=== PATIENT | male | born 1975 | race Two or more races ===

== ENCOUNTER → 2021-08-13 | Outpatient (CLI) | payer BC ==
[2021-08-13 07:53] LABS: Basophils # (auto) 0 10 ^3/uL (0-0.2); Basophils % (auto) 0.4 % (0.0-2.0); Eosinophils # (auto) 0.1 10 ^3/uL (0-0.8); Eosinophils % (auto) 2.5 % (0.0-7.0); Hematocrit 44.3 % (41.0-53.0); Hemoglobin 15.4 g/dL (13.5-17.5); Lymphocytes # (auto) 2.1 10 ^3/uL (0.4-5.4); Mean Corpuscular Hemoglobin 30.6 pg (28.0-32.0); Mean Corpuscular Hgb Conc. 34.7 g/dL (32.0-36.0); Monocytes # (auto) 0.4 10 ^3/uL (0-1.3); Monocytes % (auto) 7.4 % (0.0-12.0); Neutrophils # (auto) 2.8 10 ^3/uL (1.6-8.6); Neutrophils % (auto) 51.7 % (37.0-80.0); Nucleated Red Blood Cells % 0.2 %; Red Blood Cells 5.04 10^6/uL (4.5-5.90); White Blood Cell 5.4 10^3/uL (4.4-10.8)
[2021-08-13 07:55] LABS: Albumin 4.2 g/dL (3.4-5.0); Potassium 4.5 mmol/L (3.5-5.1)
[2021-08-13 07:58] LABS: BUN/Creatinine Ratio 19.6; Bilirubin, Total 1.1 mg/dL (0.2-1.0); Total Protein 7.8 g/dL (6.4-8.2)
== END | disposition home or self-care (01) ==
LOC: LAB 06:40
PROVIDERS: ATTEND Internal Medicine
DX: K21.9 Gastro-esophageal reflux disease without esophagitis (principal); R73.9 Hyperglycemia, unspecified; E78.5 Hyperlipidemia, unspecified
CPT/HCPCS: 36415; 80053; 80061; 83036; 84443; 85025

== ENCOUNTER → 2022-08-20 | Outpatient (CLI) | payer BC | END | disposition home or self-care (01) | LOC: LAB 10:00 | PROVIDERS: ATTEND Family Medicine | DX: C44.229 Squamous cell carcinoma of skin of left ear and external auricular canal (principal) | CPT/HCPCS: 88302 ==

== ENCOUNTER 2023-07-01 09:56 | Day surgery (SDC) | payer BC ==
[2023-06-30 08:34] LABS: Basophils # (auto) 0 10 ^3/uL (0-0.2); Basophils % (auto) 0.3 % (0.0-2.0); Eosinophils # (auto) 0.1 10 ^3/uL (0-0.8); Eosinophils % (auto) 1.3 % (0.0-7.0); Hematocrit 46.5 % (41.0-53.0); Hemoglobin 16.1 g/dL (13.5-17.5); Lymphocytes # (auto) 2.4 10 ^3/uL (0.4-5.4); Lymphocytes % (auto) 22.8 % (10.0-50.0); Mean Corpuscular Hemoglobin 30.5 pg (28.0-32.0); Mean Corpuscular Hgb Conc. 34.6 g/dL (32.0-36.0); Monocytes # (auto) 0.6 10 ^3/uL (0-1.3); Monocytes % (auto) 6.1 % (0.0-12.0); Neutrophils # (auto) 7.4 10 ^3/uL (1.6-8.6); Neutrophils % (auto) 69.5 % (37.0-80.0); Nucleated Red Blood Cells % 0.2 %; Red Blood Cells 5.28 10^6/uL (4.5-5.90); Red Cell Distribution Width 12.9 % (11.8-14.3); White Blood Cell 10.7 10^3/uL (4.4-10.8)
[2023-06-30 08:44] LABS: INR 1.03 (0.9-1.15); Partial Thromboplastin Time 28.9 SEC (24.5-34.5); Prothrombin Time 10.8 sec (9.3-11.8)
[2023-06-30 09:23] LABS: Alanine Aminotransferase 45 U/L (7-40); Albumin 4.9 g/dL (3.2-4.8); Alkaline Phosphatase 75 U/L (46-116); Anion Gap 5 (5-15); Aspartate Aminotransferase 23 U/L (13-40); BUN/Creatinine Ratio 15.8 (10.0-20.0); Bilirubin, Total 0.8 mg/dL (0.2-1.0); Blood Urea Nitrogen 15 mg/dL (9-23); Calcium 9.9 mg/dL (8.5-10.1); Carbon Dioxide 29 mmol/L (20-30); Chloride 104 mmol/L (98-107); Glucose 93 mg/dL (74-106); Potassium 4.6 mmol/L (3.5-5.1); Sodium 138 mmol/L (136-145); Total Protein 7.5 g/dL (5.7-8.2)
[~2023-07-01] VITALS: Ht 172.7 cm; Wt 79.4 kg
[~2023-07-01 09:56] MED LIST: OMEP20TA PO
[2023-07-01] MEDS ORDERED: LIDOCAINE VISCOUS 2% 15ML UD ONE (10:22)
[2023-07-01] MEDS ORDERED: SODIUM CHLORIDE LOCK 10 ML ONE (10:22)
[2023-07-01 13:49] VITALS: PULSE 72; RESP 20; O2SAT 97
[2023-07-01] MEDS: fentaNYL CITRATE 100 MCG/2 ML VL ONE ×2 (13:52→13:56)
[2023-07-01] MEDS: diphenhdrAMINE HCL 50 MG/1 ML VL ONE ×2 (13:52→13:53)
[2023-07-01] MEDS: MIDAZOLAM HCL 5 MG/ML-1ML VIAL ONE ×2 (13:52→13:56)
[2023-07-01 14:01] VITALS: O2SAT 97
[2023-07-01 14:05] VITALS: TEMP 98.4
[2023-07-01 14:35] VITALS: BP 114/82; PULSE 64; RESP 17; O2SAT 96
== END 2023-07-01 14:51 | disposition home or self-care (01) ==
LOC: GI 09:56
PROVIDERS: ATTEND Internal Medicine Gastroenterology
DX: K21.9 Gastro-esophageal reflux disease without esophagitis (principal); K29.50 Unspecified chronic gastritis without bleeding; K31.89 Other diseases of stomach and duodenum; K31.7 Polyp of stomach and duodenum; K44.9 Diaphragmatic hernia without obstruction or gangrene; Z85.820 Personal history of malignant melanoma of skin; Z98.890 Other specified postprocedural states
CPT/HCPCS: 36415; 43239; 80053; 85025; 85610; 85730; 88305; 88312; 88342; J1200; J2250; J3010; J7030

== ENCOUNTER → 2023-07-11 | Outpatient (CLI) | payer BC ==
[2023-07-11 07:44] LABS: Alanine Aminotransferase 43 U/L (7-40); Alkaline Phosphatase 74 U/L (46-116); Anion Gap 4 (5-15); BUN/Creatinine Ratio 12.5 (10.0-20.0); Blood Urea Nitrogen 12 mg/dL (9-23); Calcium 9.9 mg/dL (8.5-10.1); Carbon Dioxide 29 mmol/L (20-30); Chloride 105 mmol/L (98-107); Glucose 96 mg/dL (74-106); LDL Cholesterol 146 mg/dL (< 100); Potassium 4.9 mmol/L (3.5-5.1); Sodium 138 mmol/L (136-145); Triglycerides 91 mg/dL (< 150)
[2023-07-11 07:45] LABS: Albumin 4.7 g/dL (3.2-4.8); Aspartate Aminotransferase 20 U/L (13-40)
[2023-07-11 07:46] LABS: Bilirubin, Total 0.8 mg/dL (0.2-1.0); Cholesterol 204 mg/dL (< 200); HDL Cholesterol 48 mg/dL (40-59); Total Protein 7.6 g/dL (5.7-8.2)
== END | disposition home or self-care (01) ==
LOC: LAB 07:01
PROVIDERS: ATTEND Internal Medicine
DX: R73.01 Impaired fasting glucose (principal); E78.5 Hyperlipidemia, unspecified; E66.3 Overweight
CPT/HCPCS: 36415; 80053; 80061; 83036

== ENCOUNTER → 2024-02-28 | Outpatient (CLI) | payer BC ==
[2024-02-28 09:19] LABS: Alanine Aminotransferase 68 U/L (7-40); Albumin 4.9 g/dL (3.2-4.8); Alkaline Phosphatase 86 U/L (46-116); Anion Gap 4 (5-15); Aspartate Aminotransferase 28 U/L (13-40); Blood Urea Nitrogen 16 mg/dL (9-23); Calcium 10.2 mg/dL (8.7-10.4); Carbon Dioxide 28 mmol/L (20-30); Chloride 104 mmol/L (98-107); Glucose 94 mg/dL (74-106); Potassium 4.3 mmol/L (3.5-5.1); Sodium 136 mmol/L (136-145)
[2024-02-28 09:20] LABS: Bilirubin, Total 1.3 mg/dL (0.2-1.0); Total Protein 7.9 g/dL (5.7-8.2)
[2024-02-28 13:03] LABS: Triglycerides 152 mg/dL (< 150)
[2024-02-28 13:04] LABS: LDL Cholesterol 147 mg/dL (< 100)
[2024-02-28 13:05] LABS: Cholesterol 213 mg/dL (< 200); HDL Cholesterol 43 mg/dL (40-59)
== END | disposition home or self-care (01) ==
LOC: LAB 06:14
PROVIDERS: ATTEND Internal Medicine
DX: K21.9 Gastro-esophageal reflux disease without esophagitis (principal); E78.00 Pure hypercholesterolemia, unspecified; Z12.5 Encounter for screening for malignant neoplasm of prostate; Z80.42 Family history of malignant neoplasm of prostate
CPT/HCPCS: 36415; 80053; 80061; 82274; 84153

== ENCOUNTER → 2024-03-16 | Outpatient (CLI) | payer BC ==
[2024-03-16 09:06] LABS: Basophils # (auto) 0 10 ^3/uL (0-0.2); Basophils % (auto) 0.5 % (0.0-2.0); Eosinophils # (auto) 0.1 10 ^3/uL (0-0.8); Eosinophils % (auto) 1.9 % (0.0-7.0); Hematocrit 46.3 % (41.0-53.0); Hemoglobin 16.6 g/dL (13.5-17.5); Lymphocytes # (auto) 2.4 10 ^3/uL (0.4-5.4); Lymphocytes % (auto) 39.8 % (10.0-50.0); Mean Corpuscular Hemoglobin 31.4 pg (28.0-32.0); Mean Corpuscular Hgb Conc. 35.8 g/dL (32.0-36.0); Mean Corpuscular Volume 87.5 fL (80.0-100.0); Monocytes # (auto) 0.4 10 ^3/uL (0-1.3); Monocytes % (auto) 6.8 % (0.0-12.0); Neutrophils # (auto) 3.1 10 ^3/uL (1.6-8.6); Nucleated Red Blood Cells % 0.1 %; Platelet Count (auto) 222 10^3/uL (140-450); Red Cell Distribution Width 13.4 % (11.8-14.3)
[2024-03-16 09:49] LABS: Alanine Aminotransferase 63 U/L (7-40); Albumin 4.9 g/dL (3.2-4.8); Alkaline Phosphatase 84 U/L (46-116); Amylase 43 U/L (30-118); Anion Gap 6 (5-15); Aspartate Aminotransferase 26 U/L (13-40); BUN/Creatinine Ratio 12.6 (10.0-20.0); Bilirubin, Total 1.5 mg/dL (0.2-1.0); Blood Urea Nitrogen 12 mg/dL (9-23); Calcium 10.3 mg/dL (8.7-10.4); Carbon Dioxide 28 mmol/L (20-31); Chloride 104 mmol/L (98-107); Glucose 91 mg/dL (74-106); Potassium 4.2 mmol/L (3.5-5.1); Sodium 138 mmol/L (136-145); Total Protein 7.8 g/dL (5.7-8.2)
[2024-03-16 10:25] LABS: Prostate Specific Antigen 0.53 ng/mL (0.0-4.0)
[2024-03-16 10:29] LABS: Carcinoembryonic Antigen < 0.50 ng/mL (<=5.0)
[2024-03-16 11:39] LABS: Lipase 44 U/L (12-53)
== END | disposition home or self-care (01) ==
LOC: LAB 08:37
PROVIDERS: ATTEND Internal Medicine Gastroenterology
DX: K62.5 Hemorrhage of anus and rectum (principal); R10.9 Unspecified abdominal pain
CPT/HCPCS: 36415; 80053; 82150; 82378; 83690; 84153; 85025; 86803; 87340

== ENCOUNTER → 2024-05-03 | Outpatient (CLI) | payer BC ==
[2024-05-03 14:01] LABS: Chloride 104 mmol/L (98-107); Sodium 140 mmol/L (136-145)
[2024-05-03 14:02] LABS: Anion Gap 8 (5-15); Carbon Dioxide 28 mmol/L (20-31)
[2024-05-03 14:07] LABS: BUN/Creatinine Ratio 13.6 (10.0-20.0); Blood Urea Nitrogen 15 mg/dL (9-23); Glucose 122 mg/dL (74-106)
[2024-05-03 14:41] LABS: Urine Bacteria None Seen /hpf (None Seen)
[2024-05-03 14:45] LABS: Urine Blood TRACE /uL (Negative); Urine Clarity Clear (Clear); Urine Color Colorless (Yellow); Urine Protein, UAD Negative (Negative); Urine Specific Gravity 1.005 (1.001-1.035); Urine Urobilinogen Normal (Negative); Urine WBC 1 /hpf (0 - 3); Urine pH 5.5 (5.0-9.0)
== END | disposition home or self-care (01) ==
LOC: LAB 13:04
PROVIDERS: ATTEND Internal Medicine
DX: N40.0 Benign prostatic hyperplasia without lower urinary tract symptoms (principal); N20.0 Calculus of kidney
CPT/HCPCS: 36415; 80048; 81001; 84153

== ENCOUNTER 2024-08-02 09:15 | Day surgery (SDC) | payer BC ==
[2024-07-31 11:00] LABS: Urine Bacteria None Seen /hpf (None Seen)
[2024-07-31 11:11] LABS: Basophils # (auto) 0 10 ^3/uL (0-0.2); Basophils % (auto) 0.6 % (0.0-2.0); Eosinophils # (auto) 0.1 10 ^3/uL (0-0.8); Eosinophils % (auto) 1.7 % (0.0-7.0); Hematocrit 46.6 % (41.0-53.0); Hemoglobin 15.8 g/dL (13.5-17.5); Lymphocytes # (auto) 2.6 10 ^3/uL (0.4-5.4); Lymphocytes % (auto) 44.8 % (10.0-50.0); Mean Corpuscular Hgb Conc. 33.9 g/dL (32.0-36.0); Mean Corpuscular Volume 88.4 fL (80.0-100.0); Monocytes # (auto) 0.5 10 ^3/uL (0-1.3); Monocytes % (auto) 8.2 % (0.0-12.0); Neutrophils # (auto) 2.6 10 ^3/uL (1.6-8.6); Neutrophils % (auto) 44.7 % (37.0-80.0); Nucleated Red Blood Cells % 0.1 %; Platelet Count (auto) 222 10^3/uL (140-450); Red Blood Cells 5.27 10^6/uL (4.5-5.90); Red Cell Distribution Width 13.4 % (11.8-14.3); White Blood Cell 5.9 10^3/uL (4.4-10.8)
[2024-07-31 11:13] LABS: Urine Blood TRACE /uL (Negative); Urine Clarity Clear (Clear); Urine Color Colorless (Yellow); Urine Protein, UAD Negative (Negative); Urine Specific Gravity 1.006 (1.001-1.035); Urine Squamous Epithelial Cell None Seen /hpf (<5); Urine Urobilinogen Normal (Negative); Urine WBC < 1 /HPF (0-3)
[2024-07-31 11:33] LABS: INR 1.01 (0.9-1.15); Partial Thromboplastin Time 27.1 SEC (24.5-34.5); Prothrombin Time 10.7 sec (9.3-11.8)
[2024-07-31 11:56] LABS: Alkaline Phosphatase 80 U/L (46-116); Anion Gap 5 (5-15); Aspartate Aminotransferase 19 U/L (13-40); BUN/Creatinine Ratio 9.6 (10.0-20.0); Chloride 103 mmol/L (98-107); Potassium 4.9 mmol/L (3.5-5.1); Sodium 139 mmol/L (136-145)
[2024-07-31 11:57] LABS: Bilirubin, Total 0.9 mg/dL (0.2-1.0); Total Protein 7.5 g/dL (5.7-8.2)
[2024-07-31 11:58] LABS: Alanine Aminotransferase 50 U/L (7-40); Albumin 5.1 g/dL (3.2-4.8); Blood Urea Nitrogen 9 mg/dL (9-23); Calcium 10.6 mg/dL (8.7-10.4); Carbon Dioxide 31 mmol/L (20-31); Glucose 72 mg/dL (74-106)
[~2024-08-02] VITALS: Ht 172.7 cm; Wt 81.6 kg
[~2024-08-02 09:15] MED LIST changes: +FAMO-68 PO
[2024-08-02] MEDS ORDERED: KETAMINE 50mg/ML 1ml syringe ONE (09:42)
[2024-08-02] MEDS ORDERED: ONDANSETRON HCL 4 MG/2 ML VIAL ONE (09:42)
[2024-08-02] MEDS ORDERED: GLYCOPYRROLATE 0.2 MG/ML 1ML VIAL ONE (09:42)
[2024-08-02] MEDS ORDERED: DexAMETHasone SOD PHOS 10MG/1ML VIAL INJ ONE (09:42)
[2024-08-02] MEDS ORDERED: KETOROLAC TROMETH 30 MG/ML 1ML VIAL ONE (09:42)
[2024-08-02] MEDS ORDERED: PROPOFOL 10 MG/ML 20 ML IV ONE (09:42)
[2024-08-02] MEDS ORDERED: LIDOCAINE 2% (LOCAL ANESTH.) PF 5ml SDV ONE (09:42)
[2024-08-02] MEDS ORDERED: LIDOCAINE HCL 2% TOP JELLY 5ML TOP ONE (09:44)
[2024-08-02] MEDS: ceFAZolin 2 GM/D5W100ml 100 ML IV ONE (10:15)
[2024-08-02] MEDS ORDERED: IOHEXOL 180 MG/ML 20ML VIAL IJ ONE (10:21)
[2024-08-02 11:27] VITALS: PULSE 114; RESP 9; TEMP 97.8; O2SAT 100
[2024-08-02 11:40] VITALS: PULSE 73; RESP 20; O2SAT 98
--- NOTE | 2024-08-02 11:40 | DVHDS2 ---
New Physician D'charge PN Admitting Diagnosis Admitting Diagnosis Right renal calculus Right ureteral calculus Discharge Diagnosis Same Operations or Procedures Extracorporeal shockwave lithotripsy of right mid ureteral calculus Extracorporeal shockwave lithotripsy of right renal stone Reason(s) For Hospitalization Surgery Treatment Plan Discharge Condition of Discharge Good Disposition Home Discharge Instructions Diet: Regular Activity: Light activity Activity comment: Activity as tolerated Medications: Given Follow Up Care Follow Up/Referral: Follow up in 2-3 weeks with renal ultrasound Discharge Statement: "Patient was advised to return to the ER or call 911 if any headaches, dizziness, shortness of breath, chest pain, abdominal pain, bleeding, fevers, or worsening of medical condition. Patient was counseled about treatment plan, medications, possible side effects, patientverbalized understanding. All questions were answered to the best of my ability. This discharge took greater then 30 minutes in planning, reviewing documentation, counseling the patient, and discussing with other team members." KIZZY GEIGER MD Aug 02, 2024 11:40
[2024-08-02] MEDS ORDERED: FLUMAZENIL 0.1 MG/ML INJ 10ML MDV IV PRN (11:45)
[2024-08-02] MEDS ORDERED: hydrALAZINE HCL 20 MG/ML VL IV PRN (11:45)
[2024-08-02] MEDS ORDERED: HYDROmorphone HCL 2 MG/ML VL/or syr IV PRN (11:45)
[2024-08-02] MEDS ORDERED: ONDANSETRON HCL 4 MG/2 ML VIAL IV PRN (11:45)
[2024-08-02] MEDS ORDERED: NALOXONE HCL 0.4 MG/ML VIAL IV PRN (11:45)
[2024-08-02] MEDS ORDERED: fentaNYL CITRATE 100 MCG/2 ML VL IV PRN (11:45)
[2024-08-02] MEDS ORDERED: ePHEDrine SULFATE 50 MG/ML AMP IV PRN (11:45)
[2024-08-02] MEDS: oxyCODONE HCL 5MG TAB PO PRN (12:02)
[2024-08-02 12:12] VITALS: BP 131/90; PULSE 70; RESP 19; O2SAT 97
== END 2024-08-02 12:32 | disposition home or self-care (01) ==
LOC: SUR 09:15
PROVIDERS: ATTEND Urology
DX: N20.2 Calculus of kidney with calculus of ureter (principal); K21.9 Gastro-esophageal reflux disease without esophagitis; Z98.890 Other specified postprocedural states
CPT/HCPCS: 36415; 50590; 80053; 81001; 85025; 85610; 85730; 87086; J1100; J1885; J2003; J2405; J2704; J7030; Q9965

== ENCOUNTER → 2024-08-16 | Outpatient (CLI) | payer BC ==
[2024-08-16 13:17] LABS: Urine Bacteria None Seen /hpf (None Seen)
[2024-08-16 13:24] LABS: Basophils # (auto) 0 10 ^3/uL (0-0.2); Basophils % (auto) 0.5 % (0.0-2.0); Eosinophils # (auto) 0.1 10 ^3/uL (0-0.8); Eosinophils % (auto) 0.9 % (0.0-7.0); Hematocrit 46.6 % (41.0-53.0); Lymphocytes # (auto) 2.3 10 ^3/uL (0.4-5.4); Lymphocytes % (auto) 27.1 % (10.0-50.0); Mean Corpuscular Hemoglobin 30.6 pg (28.0-32.0); Mean Corpuscular Hgb Conc. 34.3 g/dL (32.0-36.0); Mean Corpuscular Volume 89.2 fL (80.0-100.0); Monocytes # (auto) 0.6 10 ^3/uL (0-1.3); Monocytes % (auto) 7.2 % (0.0-12.0); Neutrophils # (auto) 5.5 10 ^3/uL (1.6-8.6); Neutrophils % (auto) 64.3 % (37.0-80.0); Nucleated Red Blood Cells % 0.9 %; Platelet Count (auto) 268 10^3/uL (140-450); Red Blood Cells 5.22 10^6/uL (4.5-5.90); White Blood Cell 8.6 10^3/uL (4.4-10.8)
[2024-08-16 13:56] LABS: Alanine Aminotransferase 38 U/L (7-40); Alkaline Phosphatase 95 U/L (46-116); Anion Gap 4 (5-15); Aspartate Aminotransferase 20 U/L (13-40); BUN/Creatinine Ratio 11.4 (10.0-20.0); Blood Urea Nitrogen 13 mg/dL (9-23); Calcium 10.3 mg/dL (8.7-10.4); Carbon Dioxide 29 mmol/L (20-31); Chloride 104 mmol/L (98-107); Cholesterol 184 mg/dL (< 200); Glucose 88 mg/dL (74-106); Potassium 4.3 mmol/L (3.5-5.1); Sodium 137 mmol/L (136-145); Total Protein 8.1 g/dL (5.7-8.2); Triglycerides 79 mg/dL (< 150)
[2024-08-16 14:03] LABS: Albumin 5.2 g/dL (3.2-4.8); Bilirubin, Total 1.7 mg/dL (0.2-1.0); HDL Cholesterol 37 mg/dL (40-59); LDL Cholesterol 139 mg/dL (< 100)
[2024-08-16 14:30] LABS: Urine Blood 1+ /uL (Negative); Urine Clarity Clear (Clear); Urine Color Yellow (Yellow); Urine Hyaline Cast FEW /lpf (0 - 2); Urine Mucus FEW (None Seen); Urine Protein, UAD Negative (Negative); Urine Squamous Epithelial Cell None Seen /hpf (<5); Urine Urobilinogen Normal (Negative); Urine WBC 2 /HPF (0-3)
== END | disposition home or self-care (01) ==
LOC: LAB 12:56
PROVIDERS: ATTEND Internal Medicine
DX: Z00.01 Encounter for general adult medical examination with abnormal findings (principal)
CPT/HCPCS: 36415; 80053; 80061; 81001; 83036; 84439; 84443; 85025

== ENCOUNTER 2024-08-31 17:06 | Inpatient (IN) | payer BC ==
--- NOTE | 2024-08-31 17:42 | DVHHP2 ---
History of Present Illness Reason for Visit: Right flank pain History of Present Illness Dwayne Nichols is a 48-year-old male who presents to the hospital with right flank pain. Patient to have right ureter soapy with laser lithotripsy and stent placement with urologist. Past Surgical History: Other (Lithotripsy) Family History: Cancer, Other (Mom with lung cancer and and dad with colon cancer) Smoke: No ALCOHOL: occassional Drugs: None Lives: with Family Domestic Violence: Neg Review of Systems Musculoskeletal: other (Right flank pain) Allergies: Coded Allergies: NO KNOWN ALLERGIES (Unverified , 06/30/23) Medications Current Medications Medications Dose Ordered Sig/Pranav Route Start Time Stop Time Status Last Admin Dose Admin Acetaminophen/ Hydrocodone Bitart 1 tab Q4HP PRN PO 08/31/24 17:45 UNV Ondansetron HCl 4 mg Q4HP PRN IV 08/31/24 17:45 UNV Acetaminophen 650 mg Q6HP PRN PO 08/31/24 17:45 UNV Morphine Sulfate 2 mg Q4HPRN PRN IV 08/31/24 17:45 UNV Ceftriaxone Sodium 50 ml @ 100 mls/hr DAILY@09 IV 09/01/24 09:00 UNV Exam General Appearance: Alert, Oriented X3, Cooperative, No acute distress HEENT: Atraumatic Abdominal: Soft Neuro: Normal gait, Normal speech, Strength at 5/5 X4 ext, Normal tone, Sensation intact Psych/Mental Status: Mental status NL, Mood NL Assessment/Plan Assessment/Plan Assessment Intractable Right flank pain Right ureteral stone Plan Admit to [facility] Pending right ureteroscopy with laser lithotripsy and stent placement Regular diet NPO after midnight IV fluids Consent needed Antiemetics Pain management SCDs Home medications reconciled Plan discussed with: Patient My Orders Orders - YOGI DAY Procedure Category Date Status Time Complete Blood Count LAB 08/31/24 Logged 17:31 Comprehensive LAB 08/31/24 Logged Metabolic Panel 17:31 Admit ADMIT 08/31/24 Transmitted 17:31 Allergies JUJU 08/31/24 In Process 17:31 Code Status CODE 08/31/24 Transmitted 17:31 Hydrocodone-Acet PHA 08/31/24 Logged 5/325mg Tab ([place] 17:45 Ondansetron Hcl PHA 08/31/24 Logged (Zofran) 17:45 Complete Blood Count LAB 09/01/24 Verified 04:00 Comprehensive LAB 09/01/24 Verified Metabolic Panel 04:00 Cardiac DIET 08/31/24 Transmitted Diet-2gna,Lofat,Lochol Dinner Acetaminophen Tablet PHA 08/31/24 Logged (Tylenol Tablet) 17:45 Morphine Sulfate PHA 08/31/24 Logged Injection 17:45 Ceftriaxone 1gm/50ml PHA 09/01/24 Logged D5w (Rocephin) 09:00 Ceftriaxone 1gm/50ml PHA 08/31/24 Logged D5w (Rocephin) 17:45 Date of Service: Aug 31, 2024 Billing Provider: YOGI DAY Common Visit Codes: [id number] INP/OBS CARE (HIGH) YOGI DAY Aug 31, 2024 17:42
[2024-08-31] MEDS ORDERED: MORPHINE SULFATE INJ 2 MG/ml SYRG IV PRN (17:45)
[2024-08-31] MEDS ORDERED: ONDANSETRON HCL 4 MG/2 ML VIAL IV PRN (17:45)
[2024-08-31] MEDS ORDERED: ACETAMINOPHEN 325 MG TAB PO PRN (17:45)
[2024-08-31] MEDS ORDERED: HYDROcodone-ACET 5/325MG TAB PO PRN (17:45)
[2024-08-31 18:23] VITALS: BP 135/82; PULSE 74; RESP 18; TEMP 98.7; O2SAT 100
[2024-08-31 18:59] LABS: Basophils # (auto) 0 10 ^3/uL (0-0.2); Basophils % (auto) 0.4 % (0.0-2.0); Eosinophils # (auto) 0.1 10 ^3/uL (0-0.8); Eosinophils % (auto) 1.9 % (0.0-7.0); Lymphocytes # (auto) 2.5 10 ^3/uL (0.4-5.4); Lymphocytes % (auto) 34.3 % (10.0-50.0); Mean Corpuscular Hemoglobin 30.2 pg (28.0-32.0); Mean Corpuscular Volume 88.9 fL (80.0-100.0); Monocytes # (auto) 0.6 10 ^3/uL (0-1.3); Monocytes % (auto) 8.5 % (0.0-12.0); Neutrophils % (auto) 54.9 % (37.0-80.0); Nucleated Red Blood Cells % 0.1 %; Platelet Count (auto) 228 10^3/uL (140-450); Red Blood Cells 4.95 10^6/uL (4.5-5.90); Red Cell Distribution Width 13.2 % (11.8-14.3); White Blood Cell 7.2 10^3/uL (4.4-10.8)
[2024-08-31 19:15] LABS: Alanine Aminotransferase 37 U/L (7-40); Albumin 4.7 g/dL (3.2-4.8); Alkaline Phosphatase 81 U/L (46-116); Anion Gap 7 (5-15); Aspartate Aminotransferase 22 U/L (13-40); BUN/Creatinine Ratio 13.4 (10.0-20.0); Bilirubin, Total 0.8 mg/dL (0.2-1.0); Blood Urea Nitrogen 15 mg/dL (9-23); Calcium 9.8 mg/dL (8.7-10.4); Carbon Dioxide 27 mmol/L (20-31); Chloride 104 mmol/L (98-107); Glucose 89 mg/dL (74-106); Potassium 4.3 mmol/L (3.5-5.1); Sodium 138 mmol/L (136-145); Total Protein 7.4 g/dL (5.7-8.2)
[2024-08-31 21:00] VITALS: BP 157/71; PULSE 67; RESP 17; TEMP 97.9; O2SAT 92
[2024-08-31] MEDS: cefTRIAXone 1GM/50ML D5W 50 ML IV ONE (22:03)
[2024-08-31] MEDS: SODIUM CHLORIDE 0.9% 1,000 ML IV SCH (22:05)
[2024-09-01] VITALS (7 sets, daily range): BP systolic 116–131; BP diastolic 70–89; PULSE 57–71; RESP 18–20; TEMP 97.4–98; O2SAT 92–97
[2024-09-01 00:15] LABS: Urine Bacteria None Seen /hpf (None Seen)
[2024-09-01 00:26] LABS: Urine Blood Negative /uL (Negative); Urine Clarity Clear (Clear); Urine Color Light-Yellow (Yellow); Urine Mucus FEW (None Seen); Urine Protein, UAD Negative (Negative); Urine Specific Gravity 1.021 (1.001-1.035); Urine Squamous Epithelial Cell None Seen /hpf (<5); Urine Urobilinogen Normal (Negative); Urine WBC 1 /HPF (0-3); Urine pH 6.5 (5.0-9.0)
[2024-09-01 06:52] LABS: Basophils # (auto) 0 10 ^3/uL (0-0.2); Basophils % (auto) 0.4 % (0.0-2.0); Eosinophils # (auto) 0.1 10 ^3/uL (0-0.8); Eosinophils % (auto) 2.1 % (0.0-7.0); Hematocrit 44.4 % (41.0-53.0); Hemoglobin 15.6 g/dL (13.5-17.5); Lymphocytes # (auto) 2.3 10 ^3/uL (0.4-5.4); Lymphocytes % (auto) 35.9 % (10.0-50.0); Mean Corpuscular Hemoglobin 31.6 pg (28.0-32.0); Mean Corpuscular Hgb Conc. 35.1 g/dL (32.0-36.0); Monocytes # (auto) 0.6 10 ^3/uL (0-1.3); Monocytes % (auto) 9.3 % (0.0-12.0); Neutrophils # (auto) 3.3 10 ^3/uL (1.6-8.6); Neutrophils % (auto) 52.3 % (37.0-80.0); Nucleated Red Blood Cells % 0.1 %; Platelet Count (auto) 230 10^3/uL (140-450); Red Blood Cells 4.94 10^6/uL (4.5-5.90); Red Cell Distribution Width 13.2 % (11.8-14.3); White Blood Cell 6.3 10^3/uL (4.4-10.8)
[2024-09-01 07:00] LABS: INR 0.97 (0.9-1.15); Partial Thromboplastin Time 28.9 SEC (24.5-34.5); Prothrombin Time 10.3 sec (9.3-11.8)
[2024-09-01 07:07] LABS: Alanine Aminotransferase 38 U/L (7-40); Albumin 4.7 g/dL (3.2-4.8); Alkaline Phosphatase 82 U/L (46-116); Anion Gap 7 (5-15); Aspartate Aminotransferase 26 U/L (13-40); BUN/Creatinine Ratio 12.5 (10.0-20.0); Blood Urea Nitrogen 14 mg/dL (9-23); Calcium 9.8 mg/dL (8.7-10.4); Carbon Dioxide 28 mmol/L (20-31); Chloride 106 mmol/L (98-107); Glucose 90 mg/dL (74-106); Potassium 4.6 mmol/L (3.5-5.1); Sodium 141 mmol/L (136-145); Total Protein 7.6 g/dL (5.7-8.2)
[2024-09-01 07:08] LABS: Bilirubin, Total 0.5 mg/dL (0.2-1.0)
--- NOTE | 2024-09-01 08:43 | DVHINCON2 ---
Date of service: Sep 01, 2024 Referring Physician Hospitalist Reason for Consultation 5 mm right distal ureteral calculus History of Present Illness Patient with history of kidney stone underwent right extracorporeal shockwave lithotripsy on 08/02/2024. This procedure resulted in subcapsular hematoma of the right kidney. CT scan that was done on 08/20/2024 shows a 5 mm right distal ureteral calculus with mild hydronephrosis. He is having flank pain and presents for ureteroscopic laser lithotripsy of the distal stone with possible stent placement. Past Medical History Kidney stone Past Surgical History Right extracorporeal shockwave lithotripsy on 08/02/2024 Allergies: Coded Allergies: NO KNOWN ALLERGIES (Unverified , 06/30/23) Home Meds Reported Medications Famotidine (Gnp Acid Certified Nursing Attendant Maximum) 20 Mg Tab, 40 MG PO, TAB 07/31/24 Omeprazole (Gnp Omeprazole) 20 Mg Tab, 40 MG PO DAILY, TAB 06/30/23 Current Medications Current Medications Medications (Trade) Dose Ordered Sig/Pranav Route PRN Reason Start Time Stop Time Status Last Admin Acetaminophen/ Hydrocodone Bitart ([place] 5/325MG Tab) 1 tab Q4HP PRN PO MODERATE PAIN (4-6 PAIN SCALE) 08/31/24 17:45 Ondansetron HCl (Zofran) 4 mg Q4HP PRN IV NAUSEA / VOMITING 08/31/24 17:45 Acetaminophen (Tylenol Tablet) 650 mg Q6HP PRN PO PAIN SCALE 1-3 OR TEMP>100.4 08/31/24 17:45 Morphine Sulfate 2 mg Q4HPRN PRN IV SEVERE PAIN (7-10 PAIN SCALE) 08/31/24 17:45 Ceftriaxone Sodium 50 ml @ 100 mls/hr DAILY@09 IV 09/01/24 09:00 Sodium Chloride 1,000 ml @ 100 mls/hr Q10H IV 08/31/24 17:45 09/01/24 05:35 Famotidine (Pepcid Tablet) 40 mg DAILY PO 09/01/24 10:00 Pantoprazole Sodium (Protonix Tablet) 40 mg DAILY PO 09/01/24 10:00 Review of Systems Musculoskeletal: other (Right flank pain) Allergies: Coded Allergies: NO KNOWN ALLERGIES (Unverified , 06/30/23) Medications Current Medications Medications Dose Ordered Sig/Pranav Route Start Time Stop Time Status Last Admin Dose Admin Acetaminophen/ Hydrocodone Bitart 1 tab Q4HP PRN PO 08/31/24 17:45 UNV Ondansetron HCl 4 mg Q4HP PRN IV 08/31/24 17:45 UNV Acetaminophen 650 mg Q6HP PRN PO 08/31/24 17:45 UNV Morphine Sulfate 2 mg Q4HPRN PRN IV 08/31/24 17:45 UNV Ceftriaxone Sodium 50 ml @ 100 mls/hr DAILY@09 IV 09/01/24 09:00 UNV Vital Signs Vital Signs Date Time Temp Pulse Resp B/P (MAP) Pulse Ox O2 Delivery O2 Flow Rate FiO2 09/01/24 05:00 97.6 66 18 116/80 (92) 96 97.6 08/31/24 20:00 Room Air* 0 21 Physical Exam General Appearance: Alert, Oriented X3, Cooperative, No acute distress HEENT: Atraumatic Abdominal: Soft Neuro: Normal gait, Normal speech, Strength at 5/5 X4 ext, Normal tone, Sensation intact Psych/Mental Status: Mental status NL, Mood NL Labs/Diagnostic Data Labs Test 09/01/24 04:54 09/01/24 00:12 Range/Units White Blood Count 6.3 4.4-10.8 10^3/uL Red Blood Count 4.94 4.5-5.90 10^6/uL Hemoglobin 15.6 13.5-17.5 g/dL Hematocrit 44.4 41.0-53.0 % Mean Corpuscular Volume 90.0 80.0-100.0 fL Mean Corpuscular Hemoglobin 31.6 28.0-32.0 pg Mean Corpuscular Hemoglobin Concent 35.1 32.0-36.0 g/dL Red Cell Distribution Width 13.2 11.8-14.3 % Platelet Count 230 140-450 10^3/uL Mean Platelet Volume 7.3 6.9-10.8 fL Neutrophils (%) (Auto) 52.3 37.0-80.0 % Lymphocytes (%) (Auto) 35.9 10.0-50.0 % Monocytes (%) (Auto) 9.3 0.0-12.0 % Eosinophils (%) (Auto) 2.1 0.0-7.0 % Basophils (%) (Auto) 0.4 0.0-2.0 % Neutrophils # (Auto) 3.3 1.6-8.6 10 ^3/uL Lymphocytes # (Auto) 2.3 0.4-5.4 10 ^3/uL Monocytes # (Auto) 0.6 0-1.3 10 ^3/uL Eosinophils # (Auto) 0.1 0-0.8 10 ^3/uL Basophils # (Auto) 0 0-0.2 10 ^3/uL Nucleated Red Blood Cells 0.1 % Prothrombin Time 10.3 9.3-11.8 sec Prothrombin Time INR 0.97 0.9-1.15 Activated Partial Thromboplast Time 28.9 24.5-34.5 SEC Sodium Level 141 136-145 mmol/L Potassium Level 4.6 3.5-5.1 mmol/L Chloride Level 106 98-107 mmol/L Carbon Dioxide Level 28 20-31 mmol/L Anion Gap 7 5-15 Blood Urea Nitrogen 14 9-23 mg/dL Creatinine 1.12 0.700-1.30 mg/dL Glomerular Filtration Rate Calc 81 >90 mL/min BUN/Creatinine Ratio 12.5 10.0-20.0 Serum Glucose 90 74-106 mg/dL Calcium Level 9.8 8.7-10.4 mg/dL Total Bilirubin 0.5 0.2-1.0 mg/dL Aspartate Amino Transferase (AST) 26 13-40 U/L Alanine Aminotransferase (ALT) 38 7-40 U/L Alkaline Phosphatase 82 46-116 U/L Total Protein 7.6 5.7-8.2 g/dL Albumin 4.7 3.2-4.8 g/dL Urine Color Light-yellow Yellow Urine Clarity Clear Clear Urine pH 6.5 5.0-9.0 Urine Specific [place] 1.021 1.001-1.035 Urine Protein Negative Negative Urine Ketones Negative Negative Urine Blood Negative Negative /uL Urine Nitrite Negative Negative Urine Bilirubin Negative Negative Urine Urobilinogen Normal Negative mg/dL Urine Leukocyte Esterase Negative Negative /uL Urine RBC 1 0 - 3 /hpf Urine Microscopic WBC 1 0-3 /HPF Urine Squamous Epithelial Cells None seen <5 /hpf Urine Bacteria None seen None Seen /hpf Urine Mucus Few None Seen Urine Glucose Normal Normal mg/dL Assessment Intractable Right flank pain Right ureteral stone Plan/Recommendation Right ureteroscopic laser lithotripsy and stent placement Plan discussed with: Patient, Other KIZZY GEIGER MD Sep 01, 2024 08:43
[2024-09-01] MEDS: cefTRIAXone 1GM/50ML D5W 50 ML IV SCH (09:46)
[2024-09-01] MEDS: FAMOTIDINE 20 MG TAB PO SCH (10:00)
[2024-09-01] MEDS: PANTOPRAZOLE 40 MG TAB PO SCH (10:00)
[2024-09-01] MEDS: ONDANSETRON HCL 4 MG/2 ML VIAL IV ONE (11:45)
[2024-09-01] MEDS ORDERED: HYDROmorphone HCL 2 MG/ML VL/or syr IV PRN ×3 (11:45)
[2024-09-01] MEDS ORDERED: MIDAZOLAM HCL 2MG/2ML 2ml VIAL (1mg/ml) ONE (12:25)
[2024-09-01] MEDS ORDERED: fentaNYL CITRATE 100 MCG/2 ML VL ONE (12:25)
[2024-09-01] MEDS ORDERED: ATROPINE SULF 1 MG/10ml SYR ONE (12:27)
[2024-09-01] MEDS ORDERED: ONDANSETRON HCL 4 MG/2 ML VIAL ONE (12:29)
[2024-09-01] MEDS ORDERED: METOCLOPRAMIDE HCL 5MG/ml INJ 2ml VIAL ONE (12:29)
[2024-09-01] MEDS ORDERED: DexAMETHasone SOD PHOS 10MG/1ML VIAL INJ ONE (12:29)
--- NOTE | 2024-09-01 13:07 | DVHPN2 ---
Reviewed: Care Plan, H&P, Labs, Medications, Previous Orders, Radiology Changes from previous H/P or p: No Changes Musculoskeletal: other (Right flank pain) Objective Vitals Vital Signs Date Time Temp Pulse Resp B/P (MAP) Pulse Ox O2 Delivery O2 Flow Rate FiO2 09/01/24 09:00 97.7 57 20 125/82 (96) 97 97.7 08/31/24 20:00 Room Air* 0 21 Intake/Output Intake and Output 09/01/24 07:00 Intake Total 1450 ml Balance 1450 ml Intake Oral 600 ml IV Total 850 ml # Voids 3 Medications Current Medications Medications Dose Ordered Sig/Pranav Route Start Time Stop Time Status Last Admin Dose Admin Acetaminophen/ Hydrocodone Bitart 1 tab Q4HP PRN PO 08/31/24 17:45 Ondansetron HCl 4 mg Q4HP PRN IV 08/31/24 17:45 Acetaminophen 650 mg Q6HP PRN PO 08/31/24 17:45 Morphine Sulfate 2 mg Q4HPRN PRN IV 08/31/24 17:45 Ceftriaxone Sodium 50 ml @ 100 mls/hr DAILY@09 IV 09/01/24 09:00 09/01/24 09:46 100 MLS/HR Sodium Chloride 1,000 ml @ 100 mls/hr Q10H IV 08/31/24 17:45 09/01/24 05:35 100 MLS/HR Famotidine 40 mg DAILY PO 09/01/24 10:00 Pantoprazole Sodium 40 mg DAILY PO 09/01/24 10:00 Laboratory Results Laboratory Tests 09/01/24 04:54 Chemistry Test 08/31/24 18:28 09/01/24 04:54 Albumin 4.7 g/dL (3.2-4.8) 4.7 g/dL (3.2-4.8) Calcium Level 9.8 mg/dL (8.7-10.4) 9.8 mg/dL (8.7-10.4) Total Protein 7.4 g/dL (5.7-8.2) 7.6 g/dL (5.7-8.2) Coagulation Test 09/01/24 04:54 Prothrombin Time 10.3 sec (9.3-11.8) Prothrombin Time INR 0.97 (0.9-1.15) Activated Partial Thromboplast Time 28.9 SEC (24.5-34.5) LFT Test 08/31/24 18:28 09/01/24 04:54 Alanine Aminotransferase (ALT) 37 U/L (7-40) 38 U/L (7-40) Alkaline Phosphatase 81 U/L (46-116) 82 U/L (46-116) Aspartate Amino Transferase (AST) 22 U/L (13-40) 26 U/L (13-40) Total Bilirubin 0.8 mg/dL (0.2-1.0) 0.5 mg/dL (0.2-1.0) Urinalysis Test 09/01/24 00:12 Urine Color Light-yellow (Yellow) Urine Clarity Clear (Clear) Urine pH 6.5 (5.0-9.0) Urine Specific [place] 1.021 (1.001-1.035) Urine Protein Negative (Negative) Urine Ketones Negative (Negative) Urine Blood Negative /uL (Negative) Urine Nitrite Negative (Negative) Urine Bilirubin Negative (Negative) Urine Urobilinogen Normal mg/dL (Negative) Urine Leukocyte Esterase Negative /uL (Negative) Urine RBC 1 /hpf (0 - 3) Urine Microscopic WBC 1 /HPF (0-3) Urine Squamous Epithelial Cells None seen /hpf (<5) Urine Bacteria None seen /hpf (None Seen) Urine Mucus Few (None Seen) Urine Glucose Normal mg/dL (Normal) Labs and/or images reviewed: Labs reviewed by me, Image(s) reviewed by me Assessment/Plan Assessment/Plan Right ureteral stone scheduled for lithotripsy by Dr. Adam Acute right flank pain Plan discussed with: Patient Date of Service: Sep 01, 2024 Billing Provider: JAZIEL EDMONDS MD Common Visit Codes: [id number] INP/OBS CARE(HIGH) JAZIEL EDMONDS MD Sep 01, 2024 13:07
[2024-09-01] MEDS: IOHEXOL 300 MG/ML 100ML BOTTLE IJ ONE (13:43)
[2024-09-01] MEDS: CIPROFLOXACIN 400MG/200ML 200 ML IV ONE (13:43)
[2024-09-01] MEDS ORDERED: SUGAMMADEX 200mg/2ml Vial (100MG/ML) IV ONE (13:45)
--- NOTE | 2024-09-01 13:48 | DVHDS2 ---
New Physician D'charge PN Admitting Diagnosis Admitting Diagnosis Right distal ureteral calculus Discharge Diagnosis Same Operations or Procedures Cystoscopy with right retrograde pyelogram and right ureteroscopy Reason(s) For Hospitalization Surgery Treatment Plan Discharge Condition of Discharge Good Disposition Home Discharge Instructions Diet: Regular Activity: No Restrictions, As Tolerated Activity comment: As tolerated Medications: Given Follow Up Care Follow Up/Referral: Follow up as outpatient Discharge Statement: "Patient was advised to return to the ER or call 911 if any headaches, dizziness, shortness of breath, chest pain, abdominal pain, bleeding, fevers, or worsening of medical condition. Patient was counseled about treatment plan, medications, possible side effects, patientverbalized understanding. All questions were answered to the best of my ability. This discharge took greater then 30 minutes in planning, reviewing documentation, counseling the patient, and discussing with other team members." KIZZY GEIGER MD Sep 01, 2024 13:48
--- NOTE | 2024-09-01 13:51 | DVHOP2 ---
Operative Report - 2 Report Details Date: 09/01/24 Preop Diagnosis: Right distal ureteral calculus Postop Diagnosis: No ureteral calculus found Surgeon: Kizzy Geiger Anesthesiologist: Dr. Clarke Anesthesia: General Consent: The patient was informed of the risks and benefits of the procedure. These include but are not limited to complications of anesthesia, postoperative infection, incomplete relief of symptoms, recurrence of symptoms, damage to blood vessels, nerves and tendons, deep venous thrombosis, pulmonary embolism and possible need for repeat surgery in the future. Indications for Surgery: Patient presenting with symptomatic 5 mm right distal ureteral calculus Name of Procedure Performed Cystoscopy with right retrograde pyelogram and right ureteroscopy Procedure Details Procedure Details: Patient was taken to the operating room and underwent general anesthesia. He was placed in dorsal lithotomy position with the area of the genitalia prepped and draped in usual sterile manner. Twenty-one [place] rigid cystoscope was assembled then used to inspect the urethra in the bladder. The right ureteric orifice was identified and cannulated with six [place] open-ended catheter. Retrograde pyelogram showed no evidence of stones, filling defect or hydronephr osis. Guidewire was placed and an open-ended catheter was removed. The semi- rigid ureteroscope was used to inspect the distal ureter segment with no evidence of stone seen. According to the CT scan from 08/20/2024, there was a 5 mm distal ureteral calculus that I confirmed. However the stone is not visible on today's evaluation. Patient is awakened and taken to recovery room in stable condition Specimen: None Condition Good Disposition Home KIZZY GEIGER MD Sep 01, 2024 13:51
--- NOTE | 2024-09-01 14:55 | DVH ---
C-ARM FLUOROSCOPY: PROCEDURE: right retrograde ureterogram FLUOROSCOPY TIME: 87.5 sec DAP: 16.61 mgy FINDINGS: Spot intraoperative C arm radiographs demonstrating right retrograde ureterogram . IMPRESSION: Please refer to surgical report for detailed findings.
--- NOTE | 2024-09-01 14:55 | DVH ---
C-ARM FLUOROSCOPY: PROCEDURE: right retrograde ureterogram FLUOROSCOPY TIME: 87.5 sec DAP: 16.61 mgy FINDINGS: Spot intraoperative C arm radiographs demonstrating right retrograde ureterogram . IMPRESSION: Please refer to surgical report for detailed findings.
[2024-09-02 01:00] VITALS: BP 112/72; PULSE 83; RESP 19; TEMP 98; O2SAT 94
[2024-09-02 05:00] VITALS: PULSE 72; RESP 20; O2SAT 97
[2024-09-02 08:00] VITALS: PULSE 72; RESP 20; O2SAT 97
--- NOTE | 2024-09-02 12:37 | DVHPN2 ---
Reviewed: Care Plan, H&P, Labs, Medications, Previous Orders, Radiology Changes from previous H/P or p: No Changes Musculoskeletal: other (Right flank pain) Objective Vitals Vital Signs Date Time Temp Pulse Resp B/P (MAP) Pulse Ox O2 Delivery O2 Flow Rate FiO2 09/02/24 08:00 72 20 97 Room Air* 0 21 09/02/24 01:00 98.0 112/72 (85) 98.0 Intake/Output Intake and Output 09/02/24 07:00 Intake Total 1000 ml Output Total 1200 ml Balance -200 ml Intake Oral 800 ml IV Total 200 ml Output Urine Total 1200 ml Medications Current Medications Medications Dose Ordered Sig/Pranav Route Start Time Stop Time Status Last Admin Dose Admin Acetaminophen/ Hydrocodone Bitart 1 tab Q4HP PRN PO 08/31/24 17:45 Ondansetron HCl 4 mg Q4HP PRN IV 08/31/24 17:45 Acetaminophen 650 mg Q6HP PRN PO 08/31/24 17:45 Morphine Sulfate 2 mg Q4HPRN PRN IV 08/31/24 17:45 Ceftriaxone Sodium 50 ml @ 100 mls/hr DAILY@09 IV 09/01/24 09:00 09/02/24 09:37 100 MLS/HR Sodium Chloride 1,000 ml @ 100 mls/hr Q10H IV 08/31/24 17:45 09/02/24 08:11 100 MLS/HR Famotidine 40 mg DAILY PO 09/01/24 10:00 09/02/24 09:38 40 MG Pantoprazole Sodium 40 mg DAILY PO 09/01/24 10:00 09/02/24 09:38 40 MG Laboratory Results Laboratory Tests 09/01/24 04:54 Urinalysis Test 09/01/24 00:12 Urine Color Light-yellow (Yellow) Urine Clarity Clear (Clear) Urine pH 6.5 (5.0-9.0) Urine Specific [place] 1.021 (1.001-1.035) Urine Protein Negative (Negative) Urine Ketones Negative (Negative) Urine Blood Negative /uL (Negative) Urine Nitrite Negative (Negative) Urine Bilirubin Negative (Negative) Urine Urobilinogen Normal mg/dL (Negative) Urine Leukocyte Esterase Negative /uL (Negative) Urine RBC 1 /hpf (0 - 3) Urine Microscopic WBC 1 /HPF (0-3) Urine Squamous Epithelial Cells None seen /hpf (<5) Urine Bacteria None seen /hpf (None Seen) Urine Mucus Few (None Seen) Urine Glucose Normal mg/dL (Normal) Labs and/or images reviewed: Labs reviewed by me, Image(s) reviewed by me Assessment/Plan Assessment/Plan Right ureteral stone status post Cystoscopy with right retrograde pyelogram and right ureteroscopy by Urology Dr. Adam on 09/01/24 Acute right flank pain Plan discussed with: Patient Date of Service: Sep 02, 2024 Billing Provider: JAZIEL EDMONDS MD Common Visit Codes: [id number] INP/OBS CARE(HIGH) JAZIEL EDMONDS MD Sep 02, 2024 12:37
--- NOTE | 2024-09-02 12:42 | DVHDS2 ---
Discharge Summary Date of Admission Aug 31, 2024 at 17:06 Date of Discharge: Sep 02, 2024 Admitting Diagnosis Right flank pain Wounds: Cystoscopy Labs/Diagnostic Data: Laboratory Results Test 09/01/24 04:54 09/01/24 00:12 White Blood Count 6.3 10^3/uL (4.4-10.8) Red Blood Count 4.94 10^6/uL (4.5-5.90) Hemoglobin 15.6 g/dL (13.5-17.5) Hematocrit 44.4 % (41.0-53.0) Mean Corpuscular Volume 90.0 fL (80.0-100.0) Mean Corpuscular Hemoglobin 31.6 pg (28.0-32.0) Mean Corpuscular Hemoglobin Concent 35.1 g/dL (32.0-36.0) Red Cell Distribution Width 13.2 % (11.8-14.3) Platelet Count 230 10^3/uL (140-450) Mean Platelet Volume 7.3 fL (6.9-10.8) Neutrophils (%) (Auto) 52.3 % (37.0-80.0) Lymphocytes (%) (Auto) 35.9 % (10.0-50.0) Monocytes (%) (Auto) 9.3 % (0.0-12.0) Eosinophils (%) (Auto) 2.1 % (0.0-7.0) Basophils (%) (Auto) 0.4 % (0.0-2.0) Neutrophils # (Auto) 3.3 10 ^3/uL (1.6-8.6) Lymphocytes # (Auto) 2.3 10 ^3/uL (0.4-5.4) Monocytes # (Auto) 0.6 10 ^3/uL (0-1.3) Eosinophils # (Auto) 0.1 10 ^3/uL (0-0.8) Basophils # (Auto) 0 10 ^3/uL (0-0.2) Nucleated Red Blood Cells 0.1 % Prothrombin Time 10.3 sec (9.3-11.8) Prothrombin Time INR 0.97 (0.9-1.15) Activated Partial Thromboplast Time 28.9 SEC (24.5-34.5) Sodium Level 141 mmol/L (136-145) Potassium Level 4.6 mmol/L (3.5-5.1) Chloride Level 106 mmol/L (98-107) Carbon Dioxide Level 28 mmol/L (20-31) Anion Gap 7 (5-15) Blood Urea Nitrogen 14 mg/dL (9-23) Creatinine 1.12 mg/dL (0.700-1.30) Glomerular Filtration Rate Calc 81 mL/min (>90) BUN/Creatinine Ratio 12.5 (10.0-20.0) Serum Glucose 90 mg/dL (74-106) Calcium Level 9.8 mg/dL (8.7-10.4) Total Bilirubin 0.5 mg/dL (0.2-1.0) Aspartate Amino Transferase (AST) 26 U/L (13-40) Alanine Aminotransferase (ALT) 38 U/L (7-40) Alkaline Phosphatase 82 U/L (46-116) Total Protein 7.6 g/dL (5.7-8.2) Albumin 4.7 g/dL (3.2-4.8) Urine Color Light-yellow (Yellow) Urine Clarity Clear (Clear) Urine pH 6.5 (5.0-9.0) Urine Specific [place] 1.021 (1.001-1.035) Urine Protein Negative (Negative) Urine Ketones Negative (Negative) Urine Blood Negative /uL (Negative) Urine Nitrite Negative (Negative) Urine Bilirubin Negative (Negative) Urine Urobilinogen Normal mg/dL (Negative) Urine Leukocyte Esterase Negative /uL (Negative) Urine RBC 1 /hpf (0 - 3) Urine Microscopic WBC 1 /HPF (0-3) Urine Squamous Epithelial Cells None seen /hpf (<5) Urine Bacteria None seen /hpf (None Seen) Urine Mucus Few (None Seen) Urine Glucose Normal mg/dL (Normal) Other Laboratory Tests 09/01/24 04:54 Brief Hx & Hospital Course: 48-year-old male admitted by urologist Dr. Pulido for right flank pain with a possible right ureteral stone underwent cystoscopy with a right retrograde pyelogram no stone was found. The patient is symptom-free urinalysis negative for any infection discharged home . Patient Does not want any pain meds at the bedside. Consults/Reason for consult Urology Dr. Adam Operations or Procedures Cystoscopy Condition at Discharge: Good Final Diagnosis/Problems List Right ureteral stone status post Cystoscopy with right retrograde pyelogram and right ureteroscopy by Urology Dr. Adam on 09/01/24, no stone found Acute right flank pain resolved Discharge Disposition: Home Discharge Instruct/Medications Diet: Regular Activity: No Restrictions, As Tolerated Activity comment: As tolerated Follow Up/Referral: Follow up as outpatient 35 (Time Taken for discharge summary 35 minutes) Discharge Statement: "Patient was advised to return to the ER or call 911 if any headaches, dizziness, shortness of breath, chest pain, abdominal pain, bleeding, fevers, or worsening of medical condition. Patient was counseled about treatment plan, medications, possible side effects, patientverbalized understanding. All questions were answered to the best of my ability. This discharge took greater then 30 minutes in planning, reviewing documentation, counseling the patient, and discussing with other team members." ASSESSMENT ASSESSMENT Hospital Course Improved Assessment Right ureteral stone status post Cystoscopy with right retrograde pyelogram and right ureteroscopy by Urology Dr. Adam on 09/01/24, no stone found Acute right flank pain resolved Date of Service: Sep 02, 2024 Billing Provider: JAZIEL EDMONDS MD Common Visit Codes: [id number] DISCH DAY >30min JAZIEL EDMONDS MD Sep 02, 2024 12:42
[2024-09-02 13:18] VITALS: BP 109/55; PULSE 82; RESP 20; TEMP 98; O2SAT 97
== END 2024-09-02 13:45 | disposition home or self-care (01) | DRG 392 ==
LOC: TELE-WESTW 17:06
PROVIDERS: ADMIT Family Medicine; ATTEND Family Medicine
PROC: BT1D1ZZ Fluoroscopy of Right Kidney, Ureter and Bladder using Low Osmolar Contrast (ICD-10-PCS; 2024-09-01)
PROC: 0TJB8ZZ Inspection of Bladder, Via Natural or Artificial Opening Endoscopic (ICD-10-PCS; principal; 2024-09-01 13:15)
DX: R10.9 Unspecified abdominal pain (principal); Z80.1 Family history of malignant neoplasm of trachea, bronchus and lung; Z80.0 Family history of malignant neoplasm of digestive organs; Z87.442 Personal history of urinary calculi; Z79.899 Other long term (current) drug therapy
CPT/HCPCS: 36415; 74018; 76000; 80053; 81001; 85025; 85610; 85730; 86850; 86900; 86901; G0378; J1100; J2250; J2405